=== PATIENT | male | born 1955 | race Caucasian/White ===

== ENCOUNTER 2019-03-08 19:27 | Inpatient (IN) | payer BC, MEDICARE ==
[~2019-03-08] VITALS: Ht 160 cm; Wt 84.0 kg
[~2019-03-08 19:27] MED LIST: ETOMIDATE 2 MG/ML 10 ML INJ IV ONE; LISINOPRIL30 MG PO; NIFEDIPINE20 MG PO; NORCO 10MG-325MG1 EA PO; SOMA250 MG PO; SUCCINYLCHOLINE CHLORIDE 20 MG/ML 10ML VIAL ONE; SYMBICORT 16010.2 GM
--- OUTSIDE RECORDS SUMMARY | 2019-03-08 19:29 | XMS REPORT ---
[facility] Address Unknown Phone Unavailable Care Team Providers Care Assistant Unit Forester Name Role Phone Unavailable Unavailable Payers Payer Name Policy Type Policy Number Effective Date Expiration Date Problems This patient has no known problems. Allergies, Adverse Reactions, Alerts Allergy Name Allergy Type Status Severity Reaction(s) Onset Date Inactive Date Treating Clinician Comments No Known Allergies DA Active U 2018-10-28 00:00:00 Medications This patient has no known medications. Results Test Description Test Time Test Comments Text Results Atomic Results Result Comments B-TYPE NATRIURETIC PEPTIDE 2019-02-23 03:51:00 B-TYPE NATRIURETIC PEPTIDE (test code=BNP) 14.8 PG/ML 0-100 TROPONIN-I [id number] 03:07:00* Test Item Value Reference Range Comments TROPONIN-I RAPID (test code=TROPIRAP) 0.01 ng/mL 0.00-0.08 Performed by certified blender operator at [facility] Negative: <=0.08 Positive: >=0.09An elevated troponin value alone is not sufficient todiagnose a myocardial infarction. Rather, the patient sclinical presentation (history, physical exam) and ECGshould be used in conjunction with troponin in thediagnostic evaluation of suspected myocardial infarction. Aserial sampling protocol is recommended to facilitate the identification of temporal changes in troponin levels characteristic of [place]. CBC W/AUTO [id number] 03:06:00* Test Item Value Reference Range Comments WHITE BLOOD CELL (test code=WBC) 8.11 x10 3/uL 4.5-11.0 RED BLOOD CELL (test code=RBC) 4.61 x10 6/uL 4.00-5.60 HEMOGLOBIN (test code=HGB) 13.4 g/dL 12.5-16.9 HEMATOCRIT (test code=HCT) 42.9 % 37.5-50.7 MEAN CELL VOLUME (test code=MCV) 93.1 fL 81.0-99.0 MEAN CELL HGB (test code=MCH) 29.1 pg 27.0-33.0 MEAN CELL HGB CONCETRATION (test code=MCHC) 31.2 g/dL 33.0-37.0 RED CELL DISTRIBUTION WIDTH CV (test code=RDW) 13.5 % 11.5-14.5 RED CELL DISTRIBUTION WIDTH SD (test code=RDW-SD) 46.1 fL 37.0-54.0 PLATELET COUNT (test code=PLT) 268 x10 3/uL 150-400 MEAN PLATELET VOLUME (test code=MPV) 8.3 fL 7.0-9.0 NEUTROPHIL % (test code=NT%) 72.3 % 56.0-77.0 IMMATURE GRANULOCYTE % (test code=IG%) 0.6 % 0.0-2.0 LYMPHOCYTE % (test code=LY%) 16.3 % 14.0-32.0 MONOCYTE % (test code=MO%) 7.9 % 4.8-9.0 EOSINOPHIL % (test code=EO%) 2.2 % 0.3-3.7 BASOPHIL % (test code=BA%) 0.7 % 0.0-2.0 NUCLEATED RBC % (test code=NRBC%) 0.0 % 0-0 NEUTROPHIL # (test code=NT#) 5.86 x10 3/uL 2.0-7.6 IMMATURE GRANULOCYTE # (test code=IG#) 0.05 x10 3/uL 0.00-0.03 LYMPHOCYTE # (test code=LY#) 1.32 x10 3/uL 1.0-3.8 MONOCYTE # (test code=MO#) 0.64 x10 3/uL 0.1-0.8 EOSINOPHIL # (test code=EO#) 0.18 x10 3/uL 0.0-0.2 BASOPHIL # (test code=BA#) 0.06 x10 3/uL 0.0-0.2 NUCLEATED RBC # (test code=NRBC#) 0.00 x10 3/uL 0.0-0.1 MANUAL DIFF REQUIRED (test code=MDIFF) NO LACTIC ACID [id number] 03:02:00* Test Item Value Reference Range Comments LACTIC ACID POC (test code=LACTP) 1.0 MMOL/L 0.90-1.70 Performed by certified blender operator at [facility] CHEMISTRY 8 [id number] 03:02:00* Test Item Value Reference Range Comments ISTAT-SODIUM (test code=NAP) MMOL/L 134-147 ISTAT-POTASSIUM (test code=KP) MMOL/L 3.4-5.0 ISTAT-CHLORIDE (test code=CLP) MMOL/L 100-108 ISTAT CARBON DIOXIDE (test code=ISTAT-CO2) mmol/L 21-33 ISTAT CALCIUM IONIZED (test code=ISTAT-MARY) MG/DL 1.12-1.32 ISTAT-GLUCOSE (test code=GLUP) MG/DL 70-110 ISTAT-BUN (test code=BUNP) MG/DL 7-18 BEDSIDE CREATININE (test code=CREATBED) MG/DL 0.6-1.3 GLOMERULAR FILTRATION RATE POC (test code=GFRBED) 120 ML/MIN CHEMISTRY 8 [id number] 03:02:00* Test Item Value Reference Range Comments ISTAT-SODIUM (test code=NAP) 133 MMOL/L 134-147 ISTAT-POTASSIUM (test code=KP) 3.5 MMOL/L 3.4-5.0 ISTAT-CHLORIDE (test code=CLP) 86 MMOL/L 100-108 Performed by certified blender operator at [facility] ISTAT CARBON DIOXIDE (test code=ISTAT-CO2) 37.0 mmol/L 21-33 ISTAT CALCIUM IONIZED (test code=ISTAT-MARY) 1.18 MG/DL 1.12-1.32 ISTAT-GLUCOSE (test code=GLUP) 122 MG/DL 70-110 ISTAT-BUN (test code=BUNP) 11 MG/DL 7-18 BEDSIDE CREATININE (test code=CREATBED) 0.7 MG/DL 0.6-1.3 GLOMERULAR FILTRATION RATE POC (test code=GFRBED) 120 ML/MIN - XR CHEST 1 [id number] 02:58:00 FAX: Virgil Yadav MD [phone] [place]: St: REG Name: LINA MENDOZA [facility] : [birth year] Age/S: 63/M [address] [place] [address] Blvd Unit #: [id number] Loc: G.ERS2 [place] [address] Phys: Virgil Rockwell MD Acct: [id number] Dis Date: Status: REG ER PHONE #: [phone] Exam Date: 02/23/2019 0246 FAX #: [phone] Reason: SOB EXAMS: CPT CODE: [id number] XR CHEST 1 V [id number] EXAM: CR, XR chest one view: 02/23, 0 to 37 hours HISTORY: SOB TECHNIQUE: 1 view of the chest. COMPARISON: 10/28/2018 FINDINGS: Trachea is midline. Heart is normal in size. Pulmonary vascularity is u nremarkable. Lungs are hyperinflated with mild changes of COPD. 3 mm nod ule in the lateral right perihilar region, probably calcified granuloma. There is no airspace consolidation, pleural effusion or pneumothorax. Osseous structures are stable. IMPRESSION: No acute cardiopulmo nary disease seen. SL: [[id number]] Electro nically Signed by Kami Epperson on 02/23/2019 at 0258 Reported and signed by: José Miguel Epperson M.D. CC: Virgil Rockwell MD Technologist: Neel Villavicencio, RT(R) Trnscrd Date/Time/By: 02/23/2019 (025) : By: Harry [email or web address] Orig Print D/T: S: 02/23/2019 (0308) PAGE 1 Signed Report
[2019-03-08] MEDS ORDERED: SODIUM CHLORIDE 0.9% 1000ML 1,000 ML IV STA ×2 (19:31→20:24)
[2019-03-08] MEDS ORDERED: METHYLPREDNISOLONE SOD SUCC 125 MG/2ML VIAL IV STA (19:31)
[2019-03-08] MEDS ORDERED: ALBUTEROL SULF 0.083% NEB SOLN 3 ML NEB NEB STA (19:31)
[2019-03-08] MEDS ORDERED: CEFTRIAXONE SOD 1 GM/NS 50 ML 50 ML IV ONE (19:31)
[2019-03-08] MEDS ORDERED: IPRATROPIUM BROMIDE 0.02% 2.5 ML NEB NEB STA (19:31)
[2019-03-08 19:43] LABS: BASOPHILS % 0.2 % (0.0-1.0); EOSINOPHILS # (AUTO) 0.1 (0.0-0.4); EOSINOPHILS % 0.7 % (0.0-6.0); HEMOGLOBIN 14.2 g/dL (14.0-18.0); LYMPHOCYTES # (AUTO) 0.4 (1.0-3.2); LYMPHOCYTES % 3.4 % (18.0-39.1); MEAN CORPUSCULAR HGB CONC 32.3 g/dL (31-35); MEAN CORPUSCULAR VOLUME 92.8 fL (81-99); MONOCYTES # (AUTO) 0.6 (0.2-0.8); MONOCYTES % 5.1 % (4.4-11.3); NEUTROPHILS % 89.5 % (38.7-80.0); PLATELET COUNT 215 x10e3/uL (140-360); RED BLOOD COUNT 4.74 x10e6/uL (4.3-5.7); RED CELL DISTRIBUTION WIDTH 12.9 % (11.7-14.4)
[2019-03-08 19:52] LABS: INR 0.83; PARTIAL THROMBOPLASTIN TIME 33.9 seconds (23.8-35.5); PROTHROMBIN TIME 11.9 seconds (11.9-14.5)
[2019-03-08 20:23] LABS: ALANINE AMINOTRANSFERASE 26 IU/L (0-55); ALBUMIN 4.3 g/dL (3.5-5.0); ALBUMIN/GLOBULIN RATIO 1.3 (0.8-2.0); ALKALINE PHOSPHATASE 61 IU/L (40-150); ANION GAP 15.2 mmol/L (8-16); BLOOD UREA NITROGEN 9 mg/dL (7-26); BUN/CREATININE RATIO 13 (6-25); CALCIUM 9.2 mg/dL (8.4-10.2); CARBON DIOXIDE 37 mmol/L (22-29); CHLORIDE 71 mmol/L (98-107); CREATININE, SERUM 0.68 mg/dL (0.72-1.25); EST GLOMERULAR FILTRATION RATE > 60 ML/MIN (60-); GLUCOSE 157 mg/dL (74-118); MAGNESIUM 1.9 MG/DL (1.3-2.1); POTASSIUM 4.2 mmol/L (3.5-5.1)
[2019-03-08 20:24] LABS: SODIUM 119 mmol/L (136-145)
[2019-03-08 20:26] LABS: CREATINE KINASE 140 IU/L (30-200)
[2019-03-08 20:27] LABS: THYROID STIMULATING HORMONE 0.356 uIU/mL (0.350-4.940)
--- NOTE | 2019-03-08 20:28 | Diagnostic Imaging Report ---
EXAMINATION: CHEST SINGLE (PORTABLE) INDICATION: ^ERMD ORDER ^Y COMPARISON: None FINDINGS: AP view TUBES and LINES: None. LUNGS: Lungs are well inflated. Bilateral airspace opacities. PLEURA: No significant pleural effusion or pneumothorax. HEART AND MEDIASTINUM: The cardiomediastinal silhouette is unremarkable. BONES AND SOFT TISSUES: No acute osseous lesion. Soft tissues are unremarkable. UPPER ABDOMEN: No free air under the diaphragm. IMPRESSION: Bilateral airspace opacities, representing edema and/or pneumonia. Signed by: Dr. Camden Anderson MD on 03/08/2019 8:25 PM
[2019-03-08] MEDS ORDERED: ETOMIDATE 40 MG/ 20ML VIAL IV ONE (20:39)
[2019-03-08] MEDS ORDERED: SUCCINYLCHOLINE CHLORIDE 20 MG/ML 10ML VIAL ONE (20:40)
[2019-03-08] MEDS ORDERED: PROPOFOL IV EMULSION 10MG/ML 100 ML ONE (20:40)
--- NOTE | 2019-03-08 20:40 | NUR ---
pt now confused, oriented to person only. tolerating bipap well. co2 >130 on abg, aware, setup for rsi
[2019-03-08 20:46] LABS: ABG PH 7.11 (7.31-7.41)
[2019-03-08] MEDS ORDERED: ETOMIDATE 2 MG/ML 10 ML INJ IV STA (20:47)
[2019-03-08] MEDS ORDERED: SUCCINYLCHOLINE 200 MG/10 ML SYR IV STA (20:48)
--- NOTE | 2019-03-08 20:49 | NUR ---
PER MD ORDERS: 2046 - ETOMIDATE 20 MG IVP 2047 - SUCCINYLCHOLINE 150 MG IVP 2048 - ETT 7.5, RAD CALLED FOR PLACEMENT VERIFICATION BP 172/91, HR 106, SPO2 100% VENT
[2019-03-08] MEDS ORDERED: PROPOFOL IV EMULSION 10MG/ML 100 ML IV PRN (21:00)
[2019-03-08] MEDS ORDERED: SODIUM CHLORIDE 0.9% 1000ML 1,000 ML IV SCH (21:00)
--- NOTE | 2019-03-08 21:10 | NUR ---
condom cath placed on patient, tolerated well
--- NOTE | 2019-03-08 21:20 | NUR ---
BP DROPPED TO 85/60, PROPOFOL DRIP TURNED OFF, DR RIZZO AWARE, VERSED DRIP ORDERED. PHARMACY NOTIFIED
--- NOTE | 2019-03-08 21:30 | NUR ---
116/82, HR 100. SPO2 100% PT WITH EYES OPEN VERSED DRIP STARTED AT 4MG/HR
[2019-03-08] MEDS: MIDAZOLAM HCL 25 MG in SODIUM CHLORIDE 0.9% 50ML 45 ML IV PRN ×2 (21:32→21:44)
--- NOTE | 2019-03-08 21:37 | Diagnostic Imaging Report ---
Examination: Single AP view of the chest. COMPARISON: March 08, 2019 INDICATION: Intubation DISCUSSION: Lines/tubes: Endotracheal tube 5 cm above the po. Lungs: Prominent interstitial opacities. No consolidation. Pleura: No pleural effusion or pneumothorax. Heart and mediastinum: The heart and the mediastinum are unremarkable. Bones and soft tissues: No acute bony abnormalities. IMPRESSION: 1. No acute cardiopulmonary abnormalities. Signed by: Dr. Khanh Betts M.D. on 03/08/2019 9:34 PM
--- NOTE | 2019-03-08 21:42 | NUR ---
TITRATED VERSED UP TO 8MG/HR, PT AGITATED, RESTLESS, TRYING TO PULL AT TUBE, REDIRECTABLE
[2019-03-08] MEDS: SODIUM CHLORIDE 0.9% 1000ML 1,000 ML IV SCH ×2 (21:56→23:41)
[2019-03-08 22:00] VITALS: BP_SYST 67; BP_SYST 78; BP_DIAS 53; BP_DIAS 66
[2019-03-08] MEDS ORDERED: CEFTRIAXONE SOD 1 GM VIAL IV SCH (22:00)
[2019-03-08] MEDS: METHYLPREDNISOLONE SOD SUCC 125 MG/2ML VIAL IV SCH (22:00)
[2019-03-08] MEDS ORDERED: VANCOMYCIN 1GM/NS 250 ML 250 ML IV SCH (22:15)
[2019-03-08] MEDS ORDERED: CEFEPIME HCL 1 GM VIAL IV SCH (22:15)
[2019-03-08] MEDS ORDERED: FENTANYL CITRATE/PF 100MCG/2 ML INJ ONE ×3 (22:17→22:35)
[2019-03-08] MEDS ORDERED: SODIUM CHLORIDE 0.9% 50ML 0 ML ONE (22:21)
[2019-03-08] MEDS ORDERED: SODIUM CHLORIDE 0.9% 250ML 0 ML ONE (22:22)
[2019-03-08] MEDS ORDERED: CEFEPIME 1GM/NS 0.9% 50 ML 50 ML IV SCH (22:30)
[2019-03-08 22:42] VITALS: BP 86/66
[2019-03-08] MEDS ORDERED: MIDAZOLAM HCL 2 MG/2 ML VIAL IV PRN (22:45)
[2019-03-08] MEDS ORDERED: SODIUM CHLORIDE 0.9% 250ML 250 ML ONE (22:49)
[2019-03-08 23:00] VITALS: BP 96/77
[2019-03-08 23:59] VITALS: BP 102/73
[2019-03-09] VITALS (20 sets, daily range): BP systolic 72–174; BP diastolic 56–93
[2019-03-09] MEDS: SODIUM CHLORIDE 0.9% 1000ML 1,000 ML IV SCH ×3 (00:11→20:07)
[2019-03-09] MEDS: FENTANYL CITRATE INJ 2,000 MCG in SODIUM CHLORIDE 0.9% 250ML 210 ML IV PRN (02:40)
[2019-03-09] MEDS: MIDAZOLAM HCL 25 MG in SODIUM CHLORIDE 0.9% 50ML 45 ML IV PRN ×4 (03:07→20:00)
[2019-03-09 05:07] LABS: EOSINOPHILS # (AUTO) 0.1 (0.0-0.4); EOSINOPHILS % 1.9 % (0.0-6.0); HEMATOCRIT 31.6 % (38.2-49.6); HEMOGLOBIN 10.6 g/dL (14.0-18.0); LYMPHOCYTES # (AUTO) 0.2 (1.0-3.2); LYMPHOCYTES % 2.9 % (18.0-39.1); MEAN CORPUSCULAR HEMOGLOBIN 30.1 pg (28-32); MEAN CORPUSCULAR HGB CONC 33.5 g/dL (31-35); MEAN CORPUSCULAR VOLUME 89.8 fL (81-99); MONOCYTES # (AUTO) 0.1 (0.2-0.8); MONOCYTES % 2.1 % (4.4-11.3); NEUTROPHILS # (AUTO) 5.4 (2.1-6.9); NEUTROPHILS % 92.8 % (38.7-80.0); PLATELET COUNT 136 x10e3/uL (140-360); RED BLOOD COUNT 3.52 x10e6/uL (4.3-5.7)
--- NOTE | 2019-03-09 05:38 | Diagnostic Imaging Report ---
Examination: Single AP view of the chest. COMPARISON: 03/08/2019 INDICATION: COPD DISCUSSION: Lines/tubes: Stable endotracheal tube. Lungs: Lungs are hyperinflated. No consolidation. Prominence of the central pulmonary vasculature. Pleura: No pleural effusion or pneumothorax. Heart and mediastinum: The heart and the mediastinum are unremarkable. Bones and soft tissues: No acute bony abnormalities. IMPRESSION: Hyperinflated lungs Signed by: Dr. Khanh Betts M.D. on 03/09/2019 5:35 AM
[2019-03-09 05:40] LABS: CREATINE KINASE MB 11.3 ng/mL (0-5.0)
[2019-03-09] MEDS: METHYLPREDNISOLONE SOD SUCC 125 MG/2ML VIAL IV SCH ×3 (06:03→20:24)
[2019-03-09 06:07] LABS: ANION GAP 12.1 mmol/L (8-16); BLOOD UREA NITROGEN 14 mg/dL (7-26); BUN/CREATININE RATIO 21 (6-25); CARBON DIOXIDE 27 mmol/L (22-29); CHLORIDE 88 mmol/L (98-107); CREATININE, SERUM 0.67 mg/dL (0.72-1.25); EST GLOMERULAR FILTRATION RATE > 60 ML/MIN (60-); GLUCOSE 93 mg/dL (74-118); POTASSIUM 4.1 mmol/L (3.5-5.1); SODIUM 123 mmol/L (136-145)
[2019-03-09] MEDS: ALBUTEROL/IPRATROPIUM 3 ML NEB NEB SCH ×5 (07:25→22:43)
[2019-03-09] MEDS ORDERED: LORAZEPAM INJ 2 MG/ML VIAL IV PRN (08:45)
[2019-03-09] MEDS ORDERED: DEXTROSE 50% SYRINGE 50 ML IV PRN (08:45)
[2019-03-09] MEDS ORDERED: HEPARIN SOD (PORCINE) 5,000 UNIT/ML VIAL SC SCH (09:00)
[2019-03-09] MEDS: PANTOPRAZOLE 40 MG 10ML VIAL IV SCH (09:37)
[2019-03-09] MEDS: HEPARIN SOD (PORCINE) 5,000 UNIT/ML VIAL SC SCH ×2 (09:40→20:42)
[2019-03-09] MEDS: DOXYCYCLINE 100MG/NS 100ML 100 ML IV SCH ×2 (10:06→20:24)
--- NOTE | 2019-03-09 10:49 | History and Physical ---
CHIEF COMPLAINT: Respiratory failure, intubation. HISTORY: A 63-year-old male came in with septic shock, acute exacerbation of COPD, and pneumonia. The patient in respiratory failure. He was having difficulty breathing. He was hypoxic, pH of 7.1. The patient is intubated in the emergency room. The patient is now in the ICU. He is on ventilator support. IV antibiotics. Blood pressure was low. Multiple boluses of IV fluid were given. The patient is critically stable in ICU at this time. He is moving his extremity spontaneously. PAST MEDICAL HISTORY: Not obtainable other than from medical records. SOCIAL HISTORY: Not available. HOME MEDICATIONS: Not yet available. PHYSICAL EXAMINATION: VITAL SIGNS: Temperature 98.9, blood pressure pulse rate is 69, and respiration is 22. The patient is on ventilator support. HEENT: Normocephalic and atraumatic. Pupils reactive. NECK: Grossly supple. ET tube in place. PULMONARY: Diminished breath sounds bilaterally with coarse rales and rhonchi. CARDIOVASCULAR: Regular rate and rhythm. ABDOMEN: Soft and nondistention. EXTREMITIES: No edema. NEUROLOGIC: Sedated on ventilator support. LABORATORY DATA: Sodium is 123, potassium 4.1, chloride 88, bicarb 27, BUN 14, creatinine 0.6, and glucose 93. WBC is 5.8, hemoglobin 10.6, hematocrit 31.6, and platelets is 136. INR 0.83. IMPRESSION: 1. Sepsis with shock. 2. acute hypoxia with respiratory acidosis, on ventilator support. Intubated in the emergency room. 3. Severe hyponatremia, improving with normal saline fluid. 4. Bilateral pneumonia. PLAN: Continue with antibiotic Zosyn, vancomycin, and doxycycline. IV fluid support with normal saline. Ventilator support. Consultation with Dr. Angie Rojas. We will continue with vent support and continue with antibiotic at this time. MD LINDA Urbano/MODL /[id number]
[2019-03-09] MEDS: NICOTINE 21 MG/EA PATCH TOP PRN (11:15)
--- NOTE | 2019-03-09 11:19 | Consultation ---
DATE OF CONSULTATION: Pulmonary Consultation According to report, he has been lost to follow up with Dr. Quintero's office, admitted to Dr. Means. The patient apparently was intubated last night. There are no ER records found. He apparently had history of multiple pulmonary nodules, end-stage COPD, and smoking when he was last admitted in 2010. He is also hyponatremic at this time. According to record, cultures were sent and report is not available. There was no evidence of active TB at this time. ALLERGIES: THE PATIENT HAS NO KNOWN ALLERGIES. PAST MEDICAL HISTORY: He has history of hypertension. MEDICATIONS: According to record, his medications include: 1. Symbicort. 2. Soma. 3. Lisinopril. 4. Nifedipine. PHYSICAL EXAMINATION: GENERAL: He is awake and alert despite attempts at sedation, he is intubated orally. Hou catheter was placed. HEAD: Normocephalic, atraumatic. EYES: Extraocular movements intact. LUNGS: Wheezing in all lung welch. HEART: Regular rhythm. ABDOMEN: Nontender and nonedematous. IMPRESSION: Respiratory failure, acute exacerbation of chronic obstructive pulmonary disease. The patient continues to smoke cigarettes despite the admonishment from his physician. White count on admission was 12.0 with neutrophilia. Eventually, the H and P from the ER was found, which the patient apparently was unable to speak in full sentences. He was intubated in the emergency room because of respiratory failure with CO2 retention, severely acidotic, pH 7.11, pCO2 130, paO2 187. PLAN: Gradual correction of hyponatremia, therapeutic; acute exacerbation of COPD, antibiotics, bronchodilators, corticosteroids, cigarette smoking cessation, and nicotine patch. The patient's long-term prognosis is poor. Thank you for this kind referral. MD ARRON Cárdenas/MODL /[id number]
[2019-03-09] MEDS: INSULIN LISPRO 100 UNIT/1 ML 3ML VIAL SQ SCH ×3 (11:30→20:41)
[2019-03-09] MEDS: PIPER-TAZ 3.375 GM 50 ML IV SCH ×3 (12:55→23:58)
[2019-03-09 14:26] LABS: ABG PCO2 55 mmHg (41-51); ABG PH 7.36 (7.31-7.41)
[2019-03-09 14:27] LABS: ABG HCO3 31 mmol/L (23-28); ABG PO2 239 mmHg (80-105)
--- NOTE | 2019-03-09 15:05 | NUR ---
Nutrition Intervention Note RD Recommendation(s) for Physician: -Rec to initiate continuous TF of Vital HP @20mL/hr, advance as tolerated, to goal rate of 60mL/hr, providing 1440kcal, 126g protein, and 1204ml water. -Free water flushes of 50mL q4hr; additional per MD discretion -Check daily labs, weight, and GI tolerance Plan of Care: RD following, monitoring for tolerance and adequacy, TF Nutrition reason for involvement: Nutrition Risk Trigger MST, tube feeding RD Assessment 03/09: 63yo M, who was admitted for acute respiratory failure. Currently intubated and ventilated. CXR showed hyperinflated lungs. Pt was discussed during AM rounds. No pressor meds. TF order placed but not started yet. No family on bedside to provide hx. Will continue to monitor and follow. Principal Problems/Diagnoses: acute respiratory alkalosis, acute respiratory failure PMH: multiple pulmonary nodules, end-stage COPD, diverticulitis GI: abdomen flat, non-tender, soft, flatus present Skin: no pressure wound noted Labs: (02/27) Na 123 L, Creatinine 0.67 L, Ca 8.0 L Meds: heparin, solu-medrol, protonix, NaCl (125mL/hr), fentanyl Ht: 68in (per observation) Wt: 168.56lb BMI: 25.6kg/m2 IBW: 154lb Malnutrition Evaluation (03/09/2019) The patient does not meet criteria for a specified degree of malnutrition at this time. Will re-evaluate at follow-up as appropriate. Nutrition Prescription (Diet Order): Tube feeding with Vital HP @40mL/hr Estimated Nutritional Needs: Calories: 1368 1520kcal (18-20kcal/kg/d) Weight used: current BW Protein: 99- 152g(1.3-2g/kg/d) Weight used: current BW Diet Adequacy: Not meeting calorie needs, Not meeting protein needs Diet Education Needs Assessment: Diet education indicated, but patient not appropriate for education at this time. Nutrition Care Level: mod Nutrition Diagnosis: Inadequate oral intake related to current medical status as evidenced by pt requiring EN as main source of nutrition. Goal: Patient will meet 75-100% of estimated needs by follow up Progress: N/A Interventions: Composition, Rate, Route Monitoring/Evaluation: Total energy intake, Total protein intake, Formula/Solution, Weight change, Labs, Gastric tolerance Signed: Violet Mills, MS, RD, LD
--- NOTE | 2019-03-09 15:17 | NUR ---
GAVE PACKET OF INFORMATION WITH COMMUNITY RESOURCES FOR ASSISTANCE WITH LOW TO NO INCOME TO PATIENT. RESOURCES THAT PATIENT MAY BE ABLE TO FOLLOW UP UPON DISCHARGE. PT EDUCATED ON EACH RESOURCE AND UNDERSTANDING HOW TO FOLLOW UP TO SEE IF QUALIFIED FOR EACH RESOURCE.
[2019-03-09] MEDS: DEXMEDETOMIDINE HCL 200 MCG in SODIUM CHLORIDE 0.9% 50ML 48 ML IV PRN (16:10)
--- NOTE | 2019-03-09 16:12 | NUR ---
called Dr. Rojas d/t patients increased agitation with maxed out versed and Fentanyl gtts. Rec' T.O for precedex gtt and ok to start central line if patients BP drops for needed sedation. No answer from emergency contact for central line consent. will call again for f/u. will continue to monitor
--- NOTE | 2019-03-09 17:35 | Diagnostic Imaging Report ---
Exam: KUB. Clinical History: Abdominal pain. NG tube placement Comparison: Chest radiograph 03/09/2019 Findings: Frontal view of the abdomen demonstrates a nonobstructive bowel gas pattern with moderate retained stool. NG tube with distal tip over right medial lower lung Impression: NG tube with distal tip over right medial lower lung. Removal is recommended. Findings discussed with nurse Rousseau who is caring for the patient in the ICU by Dr. Marcelo on 03/09/2019 at 5:30 PM Signed by: Dr. Clifton Marcelo M.D. on 03/09/2019 5:32 PM
[2019-03-09] MEDS ORDERED: CEFTRIAXONE SOD 1 GM/NS 50 ML 50 ML IV SCH (19:00)
[2019-03-09] MEDS: HYDRALAZINE HCL 20 MG/ML VIAL IV PRN (19:48)
--- NOTE | 2019-03-09 21:00 | NUR ---
MD ARSHAD NOTIFIED OF TROPONIN LEVEL NO FURTHER ORDERS RECEIVED AT THIS TIME
[2019-03-10] VITALS (24 sets, daily range): BP systolic 113–190; BP diastolic 64–97
[2019-03-10] MEDS: FENTANYL CITRATE INJ 2,000 MCG in SODIUM CHLORIDE 0.9% 250ML 210 ML IV PRN ×2 (00:51→23:13)
[2019-03-10] MEDS: SODIUM CHLORIDE 0.9% 1000ML 1,000 ML IV SCH ×3 (00:53→17:38)
[2019-03-10] MEDS: ALBUTEROL/IPRATROPIUM 3 ML NEB NEB SCH ×6 (04:13→22:26)
[2019-03-10] MEDS: HYDRALAZINE HCL 20 MG/ML VIAL IV PRN ×2 (04:39→14:52)
[2019-03-10 05:21] LABS: HEMATOCRIT 34.8 % (38.2-49.6); HEMOGLOBIN 11.2 g/dL (14.0-18.0); LYMPHOCYTES # (AUTO) 0.2 (1.0-3.2); LYMPHOCYTES % 5.1 % (18.0-39.1); MEAN CORPUSCULAR HEMOGLOBIN 29.6 pg (28-32); MEAN CORPUSCULAR HGB CONC 32.2 g/dL (31-35); MEAN CORPUSCULAR VOLUME 92.1 fL (81-99); MONOCYTES # (AUTO) 0.1 (0.2-0.8); MONOCYTES % 3.4 % (4.4-11.3); NEUTROPHILS # (AUTO) 3.2 (2.1-6.9); NEUTROPHILS % 90.9 % (38.7-80.0); PLATELET COUNT 149 x10e3/uL (140-360); RED BLOOD COUNT 3.78 x10e6/uL (4.3-5.7); RED CELL DISTRIBUTION WIDTH 13.2 % (11.7-14.4)
[2019-03-10 05:39] LABS: ALANINE AMINOTRANSFERASE 16 IU/L (0-55); ALBUMIN/GLOBULIN RATIO 1.2 (0.8-2.0); ALKALINE PHOSPHATASE 40 IU/L (40-150); ANION GAP 11.4 mmol/L (8-16); BLOOD UREA NITROGEN 15 mg/dL (7-26); BUN/CREATININE RATIO 23 (6-25); CALCIUM 8.3 mg/dL (8.4-10.2); CARBON DIOXIDE 30 mmol/L (22-29); CHLORIDE 97 mmol/L (98-107); CREATININE, SERUM 0.66 mg/dL (0.72-1.25); EST GLOMERULAR FILTRATION RATE > 60 ML/MIN (60-); GLUCOSE 124 mg/dL (74-118); POTASSIUM 4.4 mmol/L (3.5-5.1); SODIUM 134 mmol/L (136-145)
[2019-03-10] MEDS: PIPER-TAZ 3.375 GM 50 ML IV SCH ×4 (06:01→23:29)
--- NOTE | 2019-03-10 06:40 | Diagnostic Imaging Report ---
Examination: Single AP view of the chest. COMPARISON: Mar 09 2019 INDICATION: Intubated DISCUSSION: Lines/tubes: Endotracheal tube 5 cm above the po. Lungs: Hyperinflated lungs. Pleura: No pleural effusion or pneumothorax. Heart and mediastinum: The heart and the mediastinum are unremarkable. Bones and soft tissues: No acute bony abnormalities. IMPRESSION: Hyperinflated lungs Signed by: Dr. Khanh Betts M.D. on 03/10/2019 6:37 AM
[2019-03-10] MEDS ORDERED: FUROSEMIDE INJ 10 MG/ML 4 ML VIAL IV ONE (07:30)
[2019-03-10] MEDS: INSULIN LISPRO 100 UNIT/1 ML 3ML VIAL SQ SCH ×4 (07:30→21:00)
[2019-03-10] MEDS: PANTOPRAZOLE 40 MG 10ML VIAL IV SCH (08:04)
[2019-03-10] MEDS: METHYLPREDNISOLONE SOD SUCC 125 MG/2ML VIAL IV SCH ×2 (08:04→20:11)
[2019-03-10] MEDS: HEPARIN SOD (PORCINE) 5,000 UNIT/ML VIAL SC SCH ×2 (08:05→20:54)
[2019-03-10] MEDS: DOXYCYCLINE 100MG/NS 100ML 100 ML IV SCH ×2 (08:30→20:11)
--- NOTE | 2019-03-10 08:39 | NUR ---
PT HAS MEDICARE
--- NOTE | 2019-03-10 11:15 | Diagnostic Imaging Report ---
ADDENDUM #1 Addendum: Previous CT chest 02/13/2011 is now available for comparison. Several more distinct pulmonary nodules are measured on series 3: * Right upper lobe nodule (image 40): 4.9 mm (03/10/2019). Not visualized (02/13/2011). * Right lower lobe nodule (image 116): 8.1 mm (03/10/2019). 5.6 mm (02/13/2011). * Left lower lobe nodule on series image 95): 4.9 mm (03/10/2019). 3.6 mm (02/13/2011). Signed by: Dr. Sumanth Barahona M.D. on 03/12/2019 11:02 AM ORIGINAL REPORT EXAM: CT Chest WITHOUT contrast INDICATION: Acute respiratory ^abnormal cxr COMPARISON: Chest x-ray 03/10/2019. TECHNIQUE: Chest was scanned utilizing a multidetector helical scanner from the lung apex through the level of the adrenal glands without administration of IV contrast. Absence of intravenous contrast decreases sensitivity for detection of lymphadenopathy and vascular pathology. Coronal and sagittal reformations were obtained. Routine protocol was performed. IV CONTRAST: None COMPLICATIONS: None RADIATION DOSE: Total DLP: 604.99 mGy*cm Estimated effective dose: (DLP x 0.014 x size factor) mSv CTDIvol has been reviewed. It is below the limits set by the Radiation Protocol Committee (RPC). Dose modulation, iterative reconstruction, and/or weight based adjustment of the mA/kV was utilized to reduce the radiation dose to as low as reasonably achievable. FINDINGS: LINES/ TUBES: Endotracheal tube in good position. LUNGS AND AIRWAYS: Moderate centrilobular and paraseptal emphysematous changes with apical predominance. Diffuse mild bronchial wall thickening, especially involving both lower lobes. Extensive subtle groundglass nodularity throughout entire lungs with areas with tree-in-bud distribution. There is also fluid/mucus plugging in the right lower lobe bronchioles. Several more distinct pulmonary nodules are measured on series 3: * Right upper lobe nodule (image 40): 4.9 mm (03/10/2019). * Right lower lobe nodule (image 116): 8.1 mm (03/10/2019). * Left lower lobe nodule on series image 95): 4.9 mm (03/10/2019) PLEURA: The pleural spaces are clear. HEART AND MEDIASTINUM: The thyroid gland is normal. No mediastinal, hilar or axillary lymphadenopathy. Multiple scattered tiny nodularity within the anterior mediastinum and mediastinum, likely tiny lymph nodes. The heart is normal in size. There is no pericardial effusion. There are significant atherosclerotic calcifications in the aorta and coronary arteries. Main pulmonary artery measures 3.0 cm. Ascending aorta measures 3.9 cm. UPPER ABDOMEN: Unremarkable. BONES: The visualized bony thorax is within normal limits. SOFT TISSUES: Unremarkable. IMPRESSION: 1. Findings consistent with diffuse bronchiolitis with bronchial wall thickening and diffuse groundglass nodularity. 2. Several more distinct pulmonary nodules. These should be followed up in 3 months. Biopsy or PET/CT should be performed if there is high risk. 3. Moderate emphysema. Signed by: Dr. Sumanth Barahona M.D. on 03/10/2019 11:11 AM
--- NOTE | 2019-03-10 11:38 | Consultation ---
DATE OF CONSULTATION: 03/10/2019 Cardiology Consultation CONSULTING PHYSICIAN: Keanu Mccarthy MD, Interventional Cardiology. CHIEF COMPLAINT: Shortness of breath. HISTORY OF PRESENT ILLNESS: A 63-year-old man with history of hypertension, active smoking, and end-stage COPD, presents with labored breathing, inability to catch his breath, requiring emergent endotracheal intubation and ventilatory support in the emergency department. He was found to have severe hyponatremia with initial sodium less than 120 and hypoxemic respiratory failure. He is undergoing treatment for hyponatremia as well as treatment for presumptive sepsis in the setting of acute respiratory failure and COPD exacerbation. Overnight, he has had episodes of labile blood pressure with hypertensive spells despite of sedatives, for which we were consulted. Additionally, his EKG has shown some prolongation of QRS and slight increase in peaking of the T-wave. He has remained in sinus bradycardia to normal sinus rhythm. REVIEW OF SYSTEMS: A 12-system review is unable to assess given the patient's current mental status and current sedative state. PAST MEDICAL HISTORY: As per HPI include hypertension, smoking-related COPD. SOCIAL HISTORY: Per medical record, smoker. Unable to assess further. FAMILY HISTORY: Unable to assess. PHYSICAL EXAMINATION: VITAL SIGNS: Temperature 98.2, heart rate 58, respiratory rate 14, on vent support; blood pressure 127/66, O2 saturation 100%. GENERAL: Intubated and sedated. HEENT: On vent support. NECK: Unable to assess jugular venous distention given the patient's positive-pressure ventilation. I do not hear a carotid bruit on exam. Neck is supple. CHEST: With scattered wheezing and rhonchi as well as decreased breath sounds throughout. CARDIOVASCULAR: Regular rate and rhythm. Normal S1, S2. No S3 or S4. No murmurs or rubs. ABDOMEN: Soft. EXTREMITIES: Trace edema. Warm distal extremities. CARDIOVASCULAR MEDICATIONS: Reviewed. 1. Hydralazine 10 mg IV every 6 hours as needed, has been initiated overnight with improvement in blood pressure control. 2. On Zosyn. 3. Lorazepam. 4. Albuterol and ipratropium. 5. Midazolam. 6. Versed sedation. 7. Normal saline hydration. 8. Protonix. 9. Subcu heparin. 10. Methylprednisolone for COPD. STUDIES: EKG; sinus rhythm with nonspecific repolarization abnormality and prolonged QT. Sodium 134, improving; potassium 4.4, chloride 97, bicarbonate 30, BUN 15, creatinine 0.66, glucose 124. White blood cells 3.5, hemoglobin 11.2, platelets 149. INR 0.8. AST 16, ALT 16, total bilirubin 0.2, alkaline phosphatase 40. ASSESSMENT: 1. Acute on chronic respiratory failure, requiring vent support. 2. Chronic obstructive pulmonary disease exacerbation, on antibiotic therapy. 3. Labile blood pressure with hypertension history, improved on sedation and p.r.n. hydralazine. 4. Abnormal EKG findings, most likely related to metabolic and electrolyte derangements. Has had serial cardiac enzymes x4, all negative. Echo ordered. 5. Smoking cessation counseling to be reinforced once the patient is extubated. Overall, guarded prognosis. Thank you for the consult. MD BINDU Gage/MODColin /[id number]
[2019-03-10] MEDS: DEXMEDETOMIDINE HCL 200 MCG in SODIUM CHLORIDE 0.9% 50ML 48 ML IV PRN (23:12)
[2019-03-10] MEDS: MIDAZOLAM HCL 25 MG in SODIUM CHLORIDE 0.9% 50ML 45 ML IV PRN (23:13)
[2019-03-11] VITALS (26 sets, daily range): BP systolic 139–207; BP diastolic 72–109
[2019-03-11] MEDS: SODIUM CHLORIDE 0.9% 1000ML 1,000 ML IV SCH ×3 (01:13→18:30)
[2019-03-11] MEDS: ALBUTEROL/IPRATROPIUM 3 ML NEB NEB SCH ×6 (02:56→23:05)
[2019-03-11] MEDS ORDERED: SODIUM CHLORIDE 0.9% 50ML 0 ML ONE (04:20)
[2019-03-11] MEDS ORDERED: DEXMEDETOMIDINE 200MCG/NS 50ML 50 ML IV ONE (04:21)
[2019-03-11] MEDS: HYDRALAZINE HCL 20 MG/ML VIAL IV PRN ×4 (05:00→23:54)
[2019-03-11] MEDS: PIPER-TAZ 3.375 GM 50 ML IV SCH ×3 (05:41→18:42)
[2019-03-11] MEDS: INSULIN LISPRO 100 UNIT/1 ML 3ML VIAL SQ SCH ×4 (07:30→21:00)
[2019-03-11 07:49] LABS: HEMATOCRIT 37.3 % (38.2-49.6); LYMPHOCYTES # (AUTO) 0.2 (1.0-3.2); LYMPHOCYTES % 3.1 % (18.0-39.1); MEAN CORPUSCULAR HEMOGLOBIN 29.7 pg (28-32); MEAN CORPUSCULAR HGB CONC 32.2 g/dL (31-35); MEAN CORPUSCULAR VOLUME 92.3 fL (81-99); MONOCYTES # (AUTO) 0.3 (0.2-0.8); MONOCYTES % 4.1 % (4.4-11.3); NEUTROPHILS # (AUTO) 5.6 (2.1-6.9); NEUTROPHILS % 92.3 % (38.7-80.0); PLATELET COUNT 181 x10e3/uL (140-360); RED BLOOD COUNT 4.04 x10e6/uL (4.3-5.7); RED CELL DISTRIBUTION WIDTH 13.6 % (11.7-14.4)
[2019-03-11 08:15] LABS: ANION GAP 10.4 mmol/L (8-16); BLOOD UREA NITROGEN 18 mg/dL (7-26); BUN/CREATININE RATIO 28 (6-25); CALCIUM 8.5 mg/dL (8.4-10.2); CARBON DIOXIDE 32 mmol/L (22-29); CHLORIDE 102 mmol/L (98-107); CREATININE, SERUM 0.64 mg/dL (0.72-1.25); EST GLOMERULAR FILTRATION RATE > 60 ML/MIN (60-); GLUCOSE 122 mg/dL (74-118); MAGNESIUM 2.3 MG/DL (1.3-2.1); POTASSIUM 4.4 mmol/L (3.5-5.1); SODIUM 140 mmol/L (136-145)
[2019-03-11] MEDS: DOXYCYCLINE 100MG/NS 100ML 100 ML IV SCH ×2 (08:30→20:22)
--- NOTE | 2019-03-11 08:30 | NUR ---
PT EXTUBATED HIMSELF,NURSE CALLED RT ,PLACED PT NONREBREATHER,O2 SATS 100%,RES RATE 25/MIN,NO RESP DISTRESS AT THIS TIME.
--- NOTE | 2019-03-11 08:36 | Diagnostic Imaging Report ---
EXAMINATION: CHEST SINGLE (PORTABLE) INDICATION: ^intubated COMPARISON: CT chest 03/10/2019. Chest x-ray 03/10/2018. FINDINGS: AP view TUBES and LINES: The endotracheal tube is in good position. LUNGS: Lungs are hyper inflated. Bilateral peribronchial cuffing. There is mild prominence of the central pulmonary vasculature, consistent with pulmonary venous congestion. PLEURA: No pleural effusion or pneumothorax. HEART AND MEDIASTINUM: The cardiomediastinal silhouette is unremarkable. There are atherosclerotic calcifications within the aorta. BONES AND SOFT TISSUES: No acute osseous lesion. Soft tissues are unremarkable. UPPER ABDOMEN: No free air under the diaphragm. IMPRESSION: Unchanged bilateral peribronchial cuffing and central pulmonary venous congestion. Signed by: Dr. Sumanth Barahona M.D. on 03/11/2019 8:33 AM
[2019-03-11] MEDS ORDERED: HYDRALAZINE HCL 20 MG/ML VIAL IV ONE (09:30)
[2019-03-11] MEDS: PANTOPRAZOLE 40 MG 10ML VIAL IV SCH (09:34)
[2019-03-11] MEDS: HEPARIN SOD (PORCINE) 5,000 UNIT/ML VIAL SC SCH ×2 (09:34→21:30)
[2019-03-11 09:46] LABS: ABG HCO3 35 mmol/L (23-28); ABG PCO2 71 mmHg (41-51); ABG PO2 114 mmHg (80-105)
[2019-03-11] MEDS ORDERED: DEXMEDETOMIDINE HCL 200 MCG in SODIUM CHLORIDE 0.9% 50ML 48 ML IV PRN (10:30)
[2019-03-11 11:00] LABS: BILIRUBIN,URINE NEGATIVE (NEGATIVE); CLARITY,URINE CLEAR (CLEAR); COLOR,URINE YELLOW (YELLOW); KETONES,URINE NEGATIVE (NEGATIVE); LEUKOCYTE ESTERASE ,URINE NEGATIVE (NEGATIVE); NITRITE,URINE NEGATIVE (NEGATIVE); PROTEIN,URINE DIPSTICK 1+ (NEGATIVE); URINE UROBILINOGEN 0.2 mg/dL (0.2 - 1)
--- NOTE | 2019-03-11 11:00 | NUR ---
PLACED PT ON VAPOTHERM 20L/50% PER DR LE ORDER.O2 SATS 99%,RES RATE 25,NO RESPIRATORY DISTRESS AT THIS TIME.
[2019-03-11 11:05] LABS: AMPHETAMINES SCREEN,URINE NEGATIVE (NEGATIVE); BENZODIAZEPINES SCREEN,URINE NEGATIVE (NEGATIVE); PHENCYCLIDINE SCREEN,URINE NEGATIVE (NEGATIVE)
[2019-03-11 11:29] LABS: RBC,URINE 21-50 /HPF (0-5)
[2019-03-11 11:30] LABS: BACTERIA,URINE FEW /HPF; EPITHELIAL CELLS,URINE FEW /LPF
[2019-03-11 11:57] LABS: LYMPHOCYTES % (MANUAL) 5 % (19-48); MONOCYTES % (MANUAL) 3 % (3.4-9.0); NEUTROPHILS % (MANUAL) 92 % (40-74)
--- NOTE | 2019-03-11 13:40 | NUR ---
patient is on 50% fiO2 on vapotherm. sating 98% rr 15. pulse is 130, bp 190/90. patient alert, reoriented to situation, following commands. rn swallow eval performed, no evidence of aspiration. patient is wanting his norco.. dr carreno called, states we can start home bp meds and norco. also diet ordered per dr person.
[2019-03-11] MEDS ORDERED: HYDROCODONE/APAP 10MG-325MG TAB PO PRN (13:45)
[2019-03-11] MEDS ORDERED: LISINOPRIL 20 MG TAB PO SCH (14:00)
[2019-03-11] MEDS: NICOTINE 21 MG/EA PATCH TOP PRN (14:25)
[2019-03-11] MEDS: DILTIAZEM HCL 30 MG TAB PO SCH (16:35)
[2019-03-11] MEDS ORDERED: DILTIAZEM HCL 30 MG TAB PO SCH (17:00)
--- NOTE | 2019-03-11 19:06 | Progress Note ---
DATE: 03/11/2019 Cardiology Progress Note SUBJECTIVE: Self-extubated today, seems upset about medications. OBJECTIVE: VITAL SIGNS: Temperature 97.8; heart rate 120, sinus tachycardia on telemetry; respiratory rate 18; blood pressure 154/78 to 186/84; and O2 saturation 99% on nasal cannula. GENERAL: In no acute distress. NECK: No JVD. CHEST: Scattered with rhonchi and wheezing, prolonged expiratory phase. CARDIOVASCULAR: Regular rate and rhythm. Normal S1, S2. Systolic ejection murmur. ABDOMEN: Soft. EXTREMITIES: No edema. CARDIOVASCULAR MEDICATIONS: Reviewed, nicotine patch, albuterol and ipratropium, Zosyn antibiotics, hydralazine 10 mg IV q.4 hours p.r.n., starting diltiazem 30 mg every 12 hours, lisinopril 30 mg daily, and DC nifedipine. LABORATORY STUDIES: Reviewed, white blood cells 6, hemoglobin 12, and platelets 181. Sodium 140, potassium 4.4, chloride 102, bicarbonate 32, BUN 18, creatinine 0.6, glucose 122, and magnesium 2.3. Blood cultures negative x48 hours. ASSESSMENT: 1. [id number] respiratory failure, now status post vent support. The patient self-extubated today. 2. Chronic obstructive pulmonary disease exacerbation, end-stage COPD. 3. Active smoker. 4. Hypertension. 5. Abnormal EKG. RECOMMENDATIONS: 1. Continue up titration of antihypertensives via oral route, and we continue with p.r.n. hydralazine for now. 2. Monitor closely respiratory status, the patient self-extubated today. 3. Overall guarded prognosis, smoking cessation reinforced. 4. Chronic diastolic heart failure, has preserved left ventricular systolic function on echocardiogram and seems euvolemic on exam. Keanu Mccarthy MD AFShaheen/MODL /[id number]
[2019-03-11] MEDS: LIDOCAINE 5% PATCH TP SCH (20:05)
[2019-03-11] MEDS: HYDROCODONE/APAP 10MG-325MG TAB PO PRN (20:23)
[2019-03-11] MEDS ORDERED: NON-FORMULARY MEDICATION (Lisinopril 30 MG) PO SCH (21:00)
[2019-03-11] MEDS: METHYLPREDNISOLONE SOD SUCC 40 MG/ML VIAL 1ML IV SCH (21:28)
[2019-03-12] VITALS (25 sets, daily range): BP systolic 99–197; BP diastolic 61–111
[2019-03-12] MEDS: HYDROCODONE/APAP 10MG-325MG TAB PO PRN ×4 (00:15→20:35)
[2019-03-12] MEDS: PIPER-TAZ 3.375 GM 50 ML IV SCH ×4 (00:53→17:00)
[2019-03-12] MEDS: ALBUTEROL/IPRATROPIUM 3 ML NEB NEB SCH ×6 (03:00→23:10)
[2019-03-12] MEDS: HYDRALAZINE HCL 20 MG/ML VIAL IV PRN ×4 (04:19→20:17)
[2019-03-12 05:17] LABS: BASOPHILS % 0.1 % (0.0-1.0); EOSINOPHILS % 0.1 % (0.0-6.0); HEMATOCRIT 38.4 % (38.2-49.6); LYMPHOCYTES # (AUTO) 0.1 (1.0-3.2); LYMPHOCYTES % 1.6 % (18.0-39.1); MEAN CORPUSCULAR HEMOGLOBIN 29.7 pg (28-32); MEAN CORPUSCULAR HGB CONC 31.3 g/dL (31-35); MONOCYTES # (AUTO) 0.4 (0.2-0.8); MONOCYTES % 4.3 % (4.4-11.3); NEUTROPHILS # (AUTO) 8.4 (2.1-6.9); NEUTROPHILS % 93.3 % (38.7-80.0); PLATELET COUNT 187 x10e3/uL (140-360); RED BLOOD COUNT 4.04 x10e6/uL (4.3-5.7)
[2019-03-12 05:31] LABS: BLOOD UREA NITROGEN 18 mg/dL (7-26); BUN/CREATININE RATIO 30 (6-25); CALCIUM 8.7 mg/dL (8.4-10.2); CARBON DIOXIDE 36 mmol/L (22-29); CHLORIDE 99 mmol/L (98-107); EST GLOMERULAR FILTRATION RATE > 60 ML/MIN (60-); GLUCOSE 135 mg/dL (74-118); SODIUM 139 mmol/L (136-145)
[2019-03-12] MEDS: INSULIN LISPRO 100 UNIT/1 ML 3ML VIAL SQ SCH ×5 (07:30→20:16)
[2019-03-12] MEDS: DILTIAZEM HCL 30 MG TAB PO SCH ×3 (08:03→20:16)
[2019-03-12] MEDS: PANTOPRAZOLE 40 MG 10ML VIAL IV SCH (08:04)
[2019-03-12] MEDS: METHYLPREDNISOLONE SOD SUCC 40 MG/ML VIAL 1ML IV SCH ×2 (08:04→20:15)
[2019-03-12] MEDS: LISINOPRIL 10 MG TAB PO SCH (08:04)
[2019-03-12] MEDS: HEPARIN SOD (PORCINE) 5,000 UNIT/ML VIAL SC SCH ×2 (08:07→20:19)
[2019-03-12] MEDS: LIDOCAINE 5% PATCH TP SCH (08:08)
[2019-03-12] MEDS ORDERED: NIFEDIPINE 10 MG CAP PO SCH (09:00)
[2019-03-12] MEDS ORDERED: CLONIDINE HCL 0.1 MG/24 HR 1 EA PATCH TOP SCH (09:30)
--- NOTE | 2019-03-12 10:07 | NUR ---
EDUCATED ABOUT IMM, SIGNED, FILED IN CHART, WITH COPY LEFT WITH FAMILY AT BEDSIDE.
[2019-03-12] MEDS: DOXYCYCLINE 100MG/NS 100ML 100 ML IV SCH ×2 (10:26→20:15)
[2019-03-12] MEDS: SODIUM CHLORIDE 0.9% 1000ML 1,000 ML IV SCH ×2 (10:36→14:10)
--- NOTE | 2019-03-12 11:05 | NUR ---
spoke to pascual in radiology. radiologist is going to compare ct done this admission with one performed on 02/13/11.
[2019-03-12] MEDS: BUSPIRONE HCL 5 MG TAB PO SCH (12:16)
[2019-03-12] MEDS: NICOTINE 21 MG/EA PATCH TOP PRN (12:16)
--- NOTE | 2019-03-12 12:34 | NUR ---
ST NOTE: Pt unable to come off of bipap, unable to complete BSE at this time. Will follow pt status and complete when clinically appropriate. Handoff to NATALI Baez
[2019-03-12 16:12] LABS: ABG PH 7.33 (7.31-7.41)
[2019-03-12 16:13] LABS: ABG HCO3 40 mmol/L (23-28); ABG PCO2 76 mmHg (41-51); ABG PO2 305 mmHg (80-105)
--- NOTE | 2019-03-12 20:04 | Progress Note ---
DATE: 03/12/2019 Cardiology Progress Note SUBJECTIVE: Requiring BiPAP today for wheezing and shortness of breath. OBJECTIVE: VITAL SIGNS: Temperature 98.5, heart rate 82, blood pressure 177/98, respiratory rate 19, and O2 saturation 100% on BiPAP. GENERAL: In mild distress. BiPAP in place. NECK: JVD elevated. CHEST: Prolonged expiratory phase. Wheezing throughout, rhonchi, and decreased breath sounds in lower half of lung welch. CARDIOVASCULAR: Regular rate and rhythm. Normal S1 and S2. Distant heart sounds. ABDOMEN: Soft and nontender. EXTREMITIES: No edema. Warm distal extremities. CARDIOVASCULAR MEDICATIONS: 1. Nicotine. 2. Diltiazem 30 mg b.i.d. 3. Clonidine patch. 4. Lisinopril 30 mg daily. 5. Hydralazine 10 mg IV every 4 hours as needed. 6. Methylprednisolone 40 mg every 12 hours. 7. Zosyn antibiotic. 8. Subcu heparin 5000 units every 12 hours. LAB STUDIES: Sodium 139, potassium 4, chloride 99, bicarbonate 36, BUN 18, creatinine 0.6, glucose 135. White blood cells 6, hemoglobin 12, platelets 187. INR 0.8. AST 16, ALT 16, alkaline phosphatase 40. ASSESSMENT: 1. End-stage chronic obstructive pulmonary disease with exacerbation, requiring some of his BiPAP after self-extubation by the patient yesterday. 2. Uncontrolled hypertension. 3. Active smoker. 4. Chronic diastolic heart failure. RECOMMENDATIONS: 1. Up titrate antihypertensives mainly diltiazem and Zosyn today. Continue with as-needed hydralazine dosing IV. 2. Inhalers, antibiotics, and steroids per Pulmonary expertise. Overall prognosis remains guarded. Keanu Mccarthy MD AFV/MODL /[id number]
[2019-03-12] MEDS ORDERED: DEXMEDETOMIDINE 200MCG/NS 50ML 50 ML IV ONE (20:49)
[2019-03-12] MEDS ORDERED: DEXMEDETOMIDINE HCL 200 MCG in SODIUM CHLORIDE 0.9% 50ML 48 ML IV PRN (21:00)
[2019-03-12] MEDS: DEXMEDETOMIDINE HCL 200 MCG in SODIUM CHLORIDE 0.9% 50ML 48 ML IV PRN (21:05)
[2019-03-12] MEDS ORDERED: MIDAZOLAM HCL 2 MG/2 ML VIAL ONE ×2 (21:14→21:25)
[2019-03-12 21:19] LABS: ABG PH 7.37 (7.31-7.41)
[2019-03-12] MEDS ORDERED: FENTANYL CITRATE/PF 100MCG/2 ML INJ ONE (21:20)
--- NOTE | 2019-03-12 21:20 | Diagnostic Imaging Report ---
EXAMINATION: CHEST XRAY LINE PLACEMENT COMPARISON: Chest x-ray 03/11/2019 INDICATION: Post intubation ^intubation ^[id number] ^[id number] DISCUSSION: Frontal view of the chest obtained at 2103 hours. The inferior chest was not included on the image. HEART AND MEDIASTINUM: Cardiomediastinal silhouette is grossly stable LINES: Endotracheal tube terminates at the clavicular heads, approximately 8 cm above the po. No central lines or enteric tubes. LUNGS: Lungs are well inflated. Pulmonary vasculature is prominent and stable. No infiltrates in the visualized lung welch. PLEURA: No pleural effusion or pneumothorax. BONES AND SOFT TISSUES: No focal osseous lesion. The soft tissues are normal. IMPRESSION: Endotracheal tube as described above. Stable pulmonary vascular congestion. No new findings given the limitations of this image. Signed by: Dr. Mera Jane MD on 03/12/2019 9:17 PM
[2019-03-12] MEDS ORDERED: SODIUM CHLORIDE 0.9% 50ML 50 ML ONE (21:25)
[2019-03-12] MEDS: MIDAZOLAM HCL 25 MG in SODIUM CHLORIDE 0.9% 50ML 45 ML IV PRN (21:52)
[2019-03-12 23:47] LABS: HEMATOCRIT 33.8 % (38.2-49.6); HEMOGLOBIN 10.6 g/dL (14.0-18.0); LYMPHOCYTES # (AUTO) 0.2 (1.0-3.2); LYMPHOCYTES % 2.7 % (18.0-39.1); MEAN CORPUSCULAR HEMOGLOBIN 29.7 pg (28-32); MEAN CORPUSCULAR HGB CONC 31.4 g/dL (31-35); MEAN CORPUSCULAR VOLUME 94.7 fL (81-99); MONOCYTES # (AUTO) 0.3 (0.2-0.8); MONOCYTES % 4.3 % (4.4-11.3); NEUTROPHILS # (AUTO) 5.5 (2.1-6.9); NEUTROPHILS % 92.3 % (38.7-80.0); PLATELET COUNT 145 x10e3/uL (140-360); RED BLOOD COUNT 3.57 x10e6/uL (4.3-5.7); RED CELL DISTRIBUTION WIDTH 13.9 % (11.7-14.4)
[2019-03-13] VITALS (28 sets, daily range): BP systolic 104–176; BP diastolic 69–101
[2019-03-13 00:03] LABS: INR 1.02; PARTIAL THROMBOPLASTIN TIME 29.1 seconds (23.8-35.5); PROTHROMBIN TIME 13.9 seconds (11.9-14.5)
[2019-03-13 00:12] LABS: ALANINE AMINOTRANSFERASE 24 IU/L (0-55); ALBUMIN 2.9 g/dL (3.5-5.0); ALBUMIN/GLOBULIN RATIO 1.4 (0.8-2.0); ALKALINE PHOSPHATASE 30 IU/L (40-150); ANION GAP 7.9 mmol/L (8-16); BLOOD UREA NITROGEN 16 mg/dL (7-26); BUN/CREATININE RATIO 30 (6-25); CALCIUM 8.7 mg/dL (8.4-10.2); CARBON DIOXIDE 38 mmol/L (22-29); CHLORIDE 99 mmol/L (98-107); CREATINE KINASE 66 IU/L (30-200); CREATININE, SERUM 0.54 mg/dL (0.72-1.25); EST GLOMERULAR FILTRATION RATE > 60 ML/MIN (60-); GLUCOSE 125 mg/dL (74-118); POTASSIUM 3.9 mmol/L (3.5-5.1); SODIUM 141 mmol/L (136-145)
[2019-03-13] MEDS: PIPER-TAZ 3.375 GM 50 ML IV SCH ×5 (00:28→23:56)
[2019-03-13] MEDS: DEXMEDETOMIDINE HCL 200 MCG in SODIUM CHLORIDE 0.9% 50ML 48 ML IV PRN ×4 (00:32→23:44)
[2019-03-13] MEDS: FENTANYL CITRATE INJ 2,000 MCG in SODIUM CHLORIDE 0.9% 250ML 210 ML IV PRN ×2 (00:34→06:11)
[2019-03-13] MEDS: ALBUTEROL/IPRATROPIUM 3 ML NEB NEB SCH ×6 (02:57→23:02)
[2019-03-13 03:07] LABS: LYMPHOCYTES % (MANUAL) 5 % (19-48); MONOCYTES % (MANUAL) 6 % (3.4-9.0); NEUTROPHILS % (MANUAL) 89 % (40-74)
[2019-03-13 04:06] LABS: ABG PH 7.41 (7.31-7.41)
[2019-03-13] MEDS: MIDAZOLAM HCL 25 MG in SODIUM CHLORIDE 0.9% 50ML 45 ML IV PRN ×3 (06:12)
--- NOTE | 2019-03-13 06:15 | Diagnostic Imaging Report ---
EXAMINATION: CHEST SINGLE (PORTABLE) COMPARISON: Chest x-ray 03/12/2019 INDICATION: Intubated ^SOB DISCUSSION: Frontal view of the chest obtained at 0515 hours. HEART AND MEDIASTINUM: The cardiomediastinal silhouette is stable. LINES: Endotracheal tube tip is poorly visualized due to underpenetration of the image. No new lines or tubes have been added. LUNGS: Stable hyperinflation. Pulmonary vascular markings are prominent and stable. No infiltrates. No interstitial thickening. PLEURA: No pleural effusion or pneumothorax. BONES AND SOFT TISSUES: No focal osseous lesion. The soft tissues are normal. IMPRESSION: Endotracheal tube tip poorly visualized. Stable pulmonary hyperinflation and pulmonary vascular prominence. Signed by: Dr. Mera Jane MD on 03/13/2019 6:11 AM
[2019-03-13 06:26] LABS: HEMATOCRIT 34.8 % (38.2-49.6); LYMPHOCYTES # (AUTO) 0.2 (1.0-3.2); LYMPHOCYTES % 4.9 % (18.0-39.1); MEAN CORPUSCULAR HEMOGLOBIN 29.5 pg (28-32); MEAN CORPUSCULAR HGB CONC 31.6 g/dL (31-35); MEAN CORPUSCULAR VOLUME 93.3 fL (81-99); MONOCYTES # (AUTO) 0.2 (0.2-0.8); MONOCYTES % 5.4 % (4.4-11.3); NEUTROPHILS # (AUTO) 3.4 (2.1-6.9); NEUTROPHILS % 88.9 % (38.7-80.0); PLATELET COUNT 148 x10e3/uL (140-360); RED BLOOD COUNT 3.73 x10e6/uL (4.3-5.7); RED CELL DISTRIBUTION WIDTH 13.9 % (11.7-14.4)
[2019-03-13 06:43] LABS: ANION GAP 9.9 mmol/L (8-16); BLOOD UREA NITROGEN 18 mg/dL (7-26); BUN/CREATININE RATIO 32 (6-25); CALCIUM 8.7 mg/dL (8.4-10.2); CARBON DIOXIDE 35 mmol/L (22-29); CHLORIDE 99 mmol/L (98-107); CREATININE, SERUM 0.57 mg/dL (0.72-1.25); EST GLOMERULAR FILTRATION RATE > 60 ML/MIN (60-); GLUCOSE 116 mg/dL (74-118); POTASSIUM 3.9 mmol/L (3.5-5.1); SODIUM 140 mmol/L (136-145)
[2019-03-13] MEDS: INSULIN LISPRO 100 UNIT/1 ML 3ML VIAL SQ SCH ×4 (07:30→21:00)
[2019-03-13] MEDS: HYDRALAZINE HCL 20 MG/ML VIAL IV PRN ×2 (07:39→20:28)
[2019-03-13] MEDS: PANTOPRAZOLE 40 MG 10ML VIAL IV SCH (08:00)
[2019-03-13] MEDS: METHYLPREDNISOLONE SOD SUCC 40 MG/ML VIAL 1ML IV SCH ×2 (08:00→20:38)
[2019-03-13] MEDS: DOXYCYCLINE 100MG/NS 100ML 100 ML IV SCH ×2 (08:00→20:37)
[2019-03-13] MEDS: NICOTINE 21 MG/EA PATCH TOP PRN (08:01)
[2019-03-13] MEDS: HEPARIN SOD (PORCINE) 5,000 UNIT/ML VIAL SC SCH ×2 (08:04→20:43)
[2019-03-13] MEDS: BUSPIRONE HCL 5 MG TAB PO SCH ×2 (08:15→17:00)
[2019-03-13] MEDS: LISINOPRIL 10 MG TAB PO SCH (08:16)
[2019-03-13] MEDS: DILTIAZEM HCL 30 MG TAB PO SCH ×3 (08:16→20:38)
[2019-03-13] MEDS: LIDOCAINE 5% PATCH TP SCH (08:16)
[2019-03-13 08:19] LABS: LYMPHOCYTES % (MANUAL) 5 % (19-48); MONOCYTES % (MANUAL) 5 % (3.4-9.0); NEUTROPHILS % (MANUAL) 90 % (40-74); PLATELET ESTIMATE ADEQUATE; PLATELET MORPHOLOGY COMMENT NORMAL; RBC MORPHOLOGY COMMENT NORMAL
--- NOTE | 2019-03-13 11:02 | Progress Note ---
DATE: Cardiology Progress Note SUBJECTIVE: Required repeat intubation overnight for recurrent respiratory failure and failure of BiPAP salvage trial. OBJECTIVE: VITAL SIGNS: Temperature 97.7, heart rate 54, respiratory rate 10, blood pressure 158/89, and O2 saturation 100% on vent support. GENERAL: Sedated, intubated. CHEST: Scattered wheezing and rhonchi and decreased breath sounds. CARDIOVASCULAR: Regular rate and rhythm. Normal S1 and S2. Distant heart sounds, muffled by lung sounds. ABDOMEN: Soft and bowel sounds positive. EXTREMITIES: Without significant edema. Warm distal extremities. CARDIOVASCULAR MEDICATIONS: Reviewed. 1. Nicotine patch. 2. Methylprednisone 40 mg IV every 12 hours. 3. Hydralazine 10 mg q.4 hours IV. 4. Clonidine patch. 5. Diltiazem 60 mg t.i.d. 6. Lisinopril 30 mg daily, currently without NG tube however. STUDIES: Reviewed. White blood cells 3.8, hemoglobin 11, and platelets 148. INR 1. Sodium 140, potassium 3.9, chloride 99, bicarbonate 35, BUN 18, creatinine 0.57, glucose 116, and calcium 8.7. Blood cultures negative x72 hours. ASSESSMENT: 1. End-stage chronic obstructive pulmonary disease requiring repeat intubation for acute on chronic respiratory failure. 2. Labile and uncontrolled hypertension. 3. Active smoking. 4. Chronic diastolic heart failure. RECOMMENDATIONS: 1. Continue on vent support. 2. Nebs per Pulmonary. 3. On steroids. Blood pressure more difficult to control. Once NG tube back in place, resume orals. For now, continue p.r.n. hydralazine and clonidine patch. 4. Keep on dry side to assist with weaning trials at low-dose diuretic. Keanu Mccarthy MD AFV/MODL /[id number]
[2019-03-13] MEDS: FUROSEMIDE INJ 10 MG/ML 2 ML VIAL IV SCH (12:02)
--- NOTE | 2019-03-13 13:11 | NUR ---
ST Note: Pt re-intubated overnight. Bedside swallow eval deferred.
--- NOTE | 2019-03-13 14:45 | NUR ---
FAMILY CONFERENCE TODAY WITH PT'S SON, DEENA ELIZALDE, DTR AND BROTHER ADRIEN. PT CURRENTLY IN ICU ON VENTILATOR PT IS A FULL CODE FAMILY STATES THAT PT SMOKES AND DRINKS BEER DAILY PT ON OXYGEN MOST OF THE DAY CONTINUES TO LIVE ALONE AND BE INDEPENDENT POSSIBLE PT'S DTR BELIEVES HE IS DEPRESSED; STATES HE RARELY HAS FAMILY CONTACT ANYMORE EXPLAINED DIFFERENT LEVELS OF CARE TO FAMILY; LTAC, SNF AND HOME WITH HOME HEALTH DISCHARGE DISPOSITION PENDING PT'S PROGRESS
--- NOTE | 2019-03-13 14:56 | NUR ---
Nutrition Intervention Note RD Recommendation(s) for Physician: - With propofol at 24.3mL/hr (583kcal), rec to initiate continuous TF of Vital HP @20mL/hr, advance as tolerated, to goal rate of 45mL/hr, providing 1080kcal, 95g protein, and 903ml water. -Free water flushes of 50mL q4hr; additional per MD discretion -Check daily labs, weight, and GI tolerance Plan of Care: RD following, monitoring for tolerance and adequacy, TF Nutrition reason for involvement: Follow up RD Assessment 03/13: Pt was re-intubated overnight for recurrent respiratory failure. Currently on vent and sedated. Propofol was running at 24.3mL/hr. IVF @50mL/hr. No family on bedside during my visit. Plan to restart TF. Communicated TF rec with NATALI Baez. 03/09: 63yo M, who was admitted for acute respiratory failure. Currently intubated and ventilated. CXR showed hyperinflated lungs. Pt was discussed during AM rounds. No pressor meds. TF order placed but not started yet. No family on bedside to provide hx. Will continue to monitor and follow. Principal Problems/Diagnoses: acute respiratory alkalosis, acute respiratory failure PMH: multiple pulmonary nodules, end-stage COPD, diverticulitis GI: abdomen flat, non-tender, soft, flatus present Skin: no pressure wound noted Labs: (03/13) Creatinine 0.57 L (02/27) Na 123 L, Creatinine 0.67 L, Ca 8.0 L Meds: lasix, heparin, solu-medrol, propofol, IVF Ht: 68in (per observation) Wt: 168.56lb; 181lb (possibly from fluids) BMI: 25.6kg/m2 IBW: 154lb Malnutrition Evaluation (03/09/2019) The patient does not meet criteria for a specified degree of malnutrition at this time. Will re-evaluate at follow-up as appropriate. Nutrition Prescription (Diet Order): Cardiac diet Estimated Nutritional Needs: Calories: 1368 1520kcal (18-20kcal/kg/d) Weight used: current BW Protein: 99- 152g (1.3-2g/kg/d) Weight used: current BW Diet Adequacy: Not meeting calorie needs, Not meeting protein needs Diet Education Needs Assessment: Diet education indicated, but patient not appropriate for education at this time. Nutrition Care Level: mod Nutrition Diagnosis: Inadequate oral intake related to current medical status as evidenced by pt requiring EN as main source of nutrition. Goal: Patient will meet 75-100% of estimated needs by follow up Progress: N/A Interventions: Composition, Rate, Route Monitoring/Evaluation: Total energy intake, Total protein intake, Formula/Solution, Weight change, Labs, Gastric tolerance Signed: Violet Mills MS, RD, LD
[2019-03-13] MEDS: PROPOFOL IV EMULSION 10MG/ML 100 ML IV PRN (15:15)
--- NOTE | 2019-03-13 17:29 | Diagnostic Imaging Report ---
EXAMINATION: CHEST XRAY LINE PLACEMENT, ABDOMEN-1VIEW (KUB) INDICATION: Status post PICC. COMPARISON: Chest radiograph 03/13/2019, KUB 03/09/2019. FINDINGS: TUBES and LINES: Interval placement of right-sided PICC, which terminates at the expected location of the mid SVC. The endotracheal tube terminates 10.7 cm above the po. Enteric tube terminates in the stomach, the side-port is above the GE junction. LUNGS: Hyperinflated lungs. No evidence of pneumonia or pulmonary edema. There is central vascular congestion. Pulmonary nodules are better characterized on CT chest from 03/10/2019. PLEURA: No pleural effusion or pneumothorax. HEART AND MEDIASTINUM: The cardiomediastinal silhouette is unremarkable. BONES AND SOFT TISSUES: No acute osseous abnormality. ABDOMEN: No free air under the diaphragm. Nonobstructive bowel gas pattern. Aortobiiliac endograft with postsurgical changes. IMPRESSION: Interval placement of right-sided PICC, terminating at the expected location of the mid SVC. No evidence of pneumothorax. ET tube and enteric tube as above. Enteric tube side port terminates above the GE junction and may be advanced by approximately 5 cm. Signed by: Dr. Cyn Frausto MD on 03/13/2019 5:26 PM
--- NOTE | 2019-03-13 20:23 | Diagnostic Imaging Report ---
EXAM: Abdomen 1 Views INDICATION: ^ogt advanced as recommended ^[id number] ^[id number] COMPARISON: KUB 03/13/2019 FINDINGS: Lines/tubes: Mild interval advancement of the NG/OG tube with proximal sidehole still close to the gastroesophageal junction and tip overlying the gastric fundus. Mild of stool in the colon. No dilated loops of small bowel. No renal calculi. No abnormal soft tissue masses. Mild degenerative changes in the lumbar spine and pelvis. Abdominal aorta/bilateral common iliac arteries stent graft in place. Multiple coils overlying the right side of the lower lumbar spine. IMPRESSION: Interval mild advancement of the NG/OG tube with proximal sidehole still close to the gastroesophageal junction. Recommend additional advancement. Signed by: Dr. Lucia Good M.D. on 03/13/2019 8:20 PM
--- NOTE | 2019-03-13 22:33 | Diagnostic Imaging Report ---
Abdomen/KUB INDICATION: ^OGT PLACEMENT ^[id number] ^[id number] COMPARISON: Abdomen x-ray 1920 hours. FINDINGS: Portable, supine image obtained at 2217 hours. Medical Devices: Enteric tube remains in the proximal stomach with the sidehole just past the GE junction. Aortic endograft is redemonstrated Bowel: Distended loop of small bowel in the left hemiabdomen measures 3.5 cm. No pneumatosis. There is air in the large bowel with less gaseous distention of the transverse colon. Free air: None Calcifications: Vascular calcifications. Organomegaly: None Lung bases: Clear Bones: Stable IMPRESSION: No change in position of enteric tube. Recommend advancement 7 to 10 cm to ensure sidehole placement within the stomach. Distended small bowel loops suggestive of mild ileus. Signed by: Dr. Mera Jane MD on 03/13/2019 10:30 PM
[2019-03-14] VITALS (23 sets, daily range): BP systolic 132–198; BP diastolic 71–96
[2019-03-14] MEDS: SODIUM CHLORIDE 0.9% 1000ML 1,000 ML IV SCH ×3 (00:01→23:25)
[2019-03-14] MEDS: PROPOFOL IV EMULSION 10MG/ML 100 ML IV PRN ×5 (02:51→19:41)
[2019-03-14] MEDS: ALBUTEROL/IPRATROPIUM 3 ML NEB NEB SCH ×6 (03:07→23:00)
[2019-03-14] MEDS: PIPER-TAZ 3.375 GM 50 ML IV SCH ×3 (05:26→17:58)
[2019-03-14 05:43] LABS: HEMATOCRIT 35.2 % (38.2-49.6); LYMPHOCYTES # (AUTO) 0.1 (1.0-3.2); LYMPHOCYTES % 4.7 % (18.0-39.1); MEAN CORPUSCULAR HEMOGLOBIN 29.7 pg (28-32); MEAN CORPUSCULAR HGB CONC 31.3 g/dL (31-35); MEAN CORPUSCULAR VOLUME 95.1 fL (81-99); MONOCYTES # (AUTO) 0.2 (0.2-0.8); MONOCYTES % 6.1 % (4.4-11.3); NEUTROPHILS # (AUTO) 2.5 (2.1-6.9); NEUTROPHILS % 88.8 % (38.7-80.0); PLATELET COUNT 151 x10e3/uL (140-360); RED CELL DISTRIBUTION WIDTH 13.8 % (11.7-14.4)
[2019-03-14] MEDS: HYDRALAZINE HCL 20 MG/ML VIAL IV PRN ×2 (06:10→12:48)
[2019-03-14] MEDS: DEXMEDETOMIDINE HCL 200 MCG in SODIUM CHLORIDE 0.9% 50ML 48 ML IV PRN (06:10)
[2019-03-14] MEDS: PANTOPRAZOLE SOD 40 MG TABEC PO SCH (07:30)
[2019-03-14] MEDS: INSULIN LISPRO 100 UNIT/1 ML 3ML VIAL SQ SCH ×4 (07:30→20:46)
[2019-03-14 07:49] LABS: LYMPHOCYTES % (MANUAL) 4 % (19-48); MONOCYTES % (MANUAL) 3 % (3.4-9.0); NEUTROPHILS % (MANUAL) 93 % (40-74); PLATELET ESTIMATE ADEQUATE; RBC MORPHOLOGY COMMENT NORMAL
[2019-03-14 07:50] LABS: PLATELET MORPHOLOGY COMMENT NORMAL
--- NOTE | 2019-03-14 07:51 | Diagnostic Imaging Report ---
Exam: Abdominal film Clinical History: Orogastric tube placement Comparison: 03/13/2019 DISCUSSION: Enteric tube has been advanced. The tip now projects over the expected region of the pylorus with the sidehole positioned over the gastric body. Bowel gas pattern remains nonobstructive with interval resolution of previously described mildly distended air-filled loop of small bowel in the midabdomen. No mass effect or organomegaly. Endograft related to abdominal aortic aneurysm repair and side branch vessel coil embolization, unchanged. Regional skeletal structures are intact. IMPRESSION: Interval advancement of enteric tube, with the tip now projecting over the gastric pylorus. Signed by: Dr. Sheldon Wagoner M.D. on 03/14/2019 7:47 AM
[2019-03-14 08:03] LABS: ANION GAP 10.9 mmol/L (8-16); BLOOD UREA NITROGEN 20 mg/dL (7-26); BUN/CREATININE RATIO 35 (6-25); CALCIUM 9.1 mg/dL (8.4-10.2); CARBON DIOXIDE 36 mmol/L (22-29); CHLORIDE 98 mmol/L (98-107); CREATININE, SERUM 0.57 mg/dL (0.72-1.25); EST GLOMERULAR FILTRATION RATE > 60 ML/MIN (60-); GLUCOSE 131 mg/dL (74-118); POTASSIUM 3.9 mmol/L (3.5-5.1); SODIUM 141 mmol/L (136-145)
[2019-03-14] MEDS: LIDOCAINE 5% PATCH TP SCH (09:00)
[2019-03-14] MEDS: DILTIAZEM HCL 30 MG TAB PO SCH ×3 (09:00→20:47)
[2019-03-14] MEDS: BUSPIRONE HCL 5 MG TAB PO SCH ×2 (09:17→17:58)
[2019-03-14] MEDS: FUROSEMIDE INJ 10 MG/ML 2 ML VIAL IV SCH (09:17)
[2019-03-14] MEDS: METHYLPREDNISOLONE SOD SUCC 40 MG/ML VIAL 1ML IV SCH ×2 (09:17→20:46)
[2019-03-14] MEDS: HEPARIN SOD (PORCINE) 5,000 UNIT/ML VIAL SC SCH ×2 (09:19→20:47)
[2019-03-14] MEDS: NICOTINE 21 MG/EA PATCH TOP PRN (09:19)
[2019-03-14] MEDS: DOXYCYCLINE 100MG/NS 100ML 100 ML IV SCH ×2 (09:30→20:46)
[2019-03-14] MEDS: LISINOPRIL 10 MG TAB PO SCH (10:12)
--- NOTE | 2019-03-14 12:07 | NUR ---
ST NOTE: Pt continues to be intubated, will follow pt status and complete BSE when pt has been extubated 24-48 hours
[2019-03-14] MEDS ORDERED: MIDAZOLAM HCL 25 MG in DEXTROSE 5% 50ML 45 ML IV PRN (13:45)
[2019-03-14] MEDS: FENTANYL CITRATE INJ 2,000 MCG in SODIUM CHLORIDE 0.9% 250ML 210 ML IV PRN ×2 (15:00→21:00)
[2019-03-14] MEDS ORDERED: THIAMINE HCL INJ 100 MG/ML 2ML VIAL IV NR (15:00)
[2019-03-14] MEDS: MIDAZOLAM HCL 25 MG in SODIUM CHLORIDE 0.9% 50ML 45 ML IV PRN ×3 (15:27→23:10)
--- NOTE | 2019-03-14 17:40 | Progress Note ---
DATE: 03/14/2019 Cardiology Progress Note SUBJECTIVE: Remains sedated and intubated. OBJECTIVE: VITAL SIGNS: Temperature 98.2, heart rate 56, respiratory rate 16, blood pressure 134/74, O2 saturation 100% on vent support. GENERAL: In sedated state, connected to the vent via ET tube. LUNGS: Scattered wheezing and rhonchi to lung auscultation. CARDIOVASCULAR: Regular rate and rhythm. Normal S1, S2. On telemetry, in sinus rhythm. ABDOMEN: Soft, nondistended. EXTREMITIES: No edema. Warm distal extremities. SKIN: Intact. CARDIOVASCULAR MEDICATIONS: Reviewed. Nicotine patch, heparin subcu 5000 units every 12 hours, furosemide 10 mg IV daily, methylprednisolone 40 mg IV q.12 hours, hydralazine p.r.n. 10 mg IV, diltiazem 60 mg t.i.d., clonidine patch once a day. LABORATORY DATA: White blood cells 2.7, hemoglobin 11, platelets 151. Sodium 141, potassium 3.9, chloride 98, bicarbonate 36, BUN 20, creatinine 0.5, glucose 131, calcium 9.1. Blood cultures negative x5 days. ASSESSMENT: 1. End-stage chronic obstructive pulmonary disease requiring repeat intubation for acute on chronic respiratory failure. 2. Labile blood pressure, history of hypertension. 3. Active smoker. 4. Chronic diastolic heart failure. RECOMMENDATION: 1. Continue diuretics. 2. Continue vent support and weaning as per Pulmonary. 3. Inhalers as needed. 4. Steroids as needed. 5. Antihypertensives, continue. MD BINDU Gage/GLO /[id number]
--- NOTE | 2019-03-14 19:00 | NUR ---
Bedside report received from Abigail King RN. No signs of distress noted. Care plan reviewed, no family at the bedside. Per report pt is to transfer to [facility] in AM.
[2019-03-15] VITALS (16 sets, daily range): BP systolic 129–198; BP diastolic 71–94
[2019-03-15] MEDS: PROPOFOL IV EMULSION 10MG/ML 100 ML IV PRN ×3 (01:20→13:26)
[2019-03-15] MEDS: HYDRALAZINE HCL 20 MG/ML VIAL IV PRN ×2 (01:30→14:43)
[2019-03-15] MEDS: ALBUTEROL/IPRATROPIUM 3 ML NEB NEB SCH ×4 (04:00→15:00)
[2019-03-15] MEDS: MIDAZOLAM HCL 25 MG in SODIUM CHLORIDE 0.9% 50ML 45 ML IV PRN ×3 (04:00→13:26)
[2019-03-15] MEDS: PIPER-TAZ 3.375 GM 50 ML IV SCH ×4 (05:29→18:00)
--- NOTE | 2019-03-15 07:00 | NUR ---
Bedside report given to Abigail King RN. Care plan reviewed, no family at the bedside. No signs of distress or discomfort noted at this time. Pt to transfer to [place] today.
[2019-03-15] MEDS: INSULIN LISPRO 100 UNIT/1 ML 3ML VIAL SQ SCH ×3 (07:30→16:30)
[2019-03-15] MEDS: PANTOPRAZOLE SOD 40 MG TABEC PO SCH (07:30)
[2019-03-15] MEDS: DOXYCYCLINE 100MG/NS 100ML 100 ML IV SCH (08:30)
[2019-03-15] MEDS: DILTIAZEM HCL 30 MG TAB PO SCH ×2 (08:45→15:00)
[2019-03-15] MEDS: BUSPIRONE HCL 5 MG TAB PO SCH ×2 (09:00→17:00)
[2019-03-15] MEDS: FUROSEMIDE INJ 10 MG/ML 2 ML VIAL IV SCH (09:00)
[2019-03-15] MEDS: LISINOPRIL 10 MG TAB PO SCH (09:00)
[2019-03-15] MEDS: LIDOCAINE 5% PATCH TP SCH (09:00)
--- NOTE | 2019-03-15 09:28 | NUR ---
ST NOTE: Pt continues to be intubated, will follow pt status and complete BSE when pt has been extubated 24-48 hours
[2019-03-15] MEDS: HEPARIN SOD (PORCINE) 5,000 UNIT/ML VIAL SC SCH (12:10)
[2019-03-15] MEDS: FENTANYL CITRATE INJ 2,000 MCG in SODIUM CHLORIDE 0.9% 250ML 210 ML IV PRN (13:26)
--- NOTE | 2019-03-15 17:00 | NUR ---
pt discharged to [facility] area via [facility] stretcher w/assessment clinician available for vent transfer. pt sedated on versed,fentanyl and propofol
[2019-03-15] MEDS ORDERED: METHYLPREDNISOLONE SOD SUCC 40 MG/ML VIAL 1ML IV SCH (21:00)
[2019-03-16] MEDS ORDERED: THIAMINE HCL 100 MG TAB PO SCH (09:00)
== END 2019-03-15 17:10 | DRG 870 ==
LOC: ER 19:27 → ERHOLD 21:57 → ICU 22:48 → MED/SURG2 03-12 10:09 → ICU 03-12 10:22
PROVIDERS: ADMIT Internal Medicine; ATTEND Internal Medicine
PROC: 0BH17EZ Insertion of Endotracheal Airway into Trachea, Via Natural or Artificial Opening (ICD-10-PCS; principal; 2019-03-08)
PROC: 5A1955Z Respiratory Ventilation, Greater than 96 Consecutive Hours (ICD-10-PCS; 2019-03-08)
PROC: 02HV33Z Insertion of Infusion Device into Superior Vena Cava, Percutaneous Approach (ICD-10-PCS; 2019-03-12)
DX: A41.9 Sepsis, unspecified organism (principal); R65.21 Severe sepsis with septic shock; J18.9 Pneumonia, unspecified organism; J96.21 Acute and chronic respiratory failure with hypoxia; E87.1 Hypo-osmolality and hyponatremia; J44.1 Chronic obstructive pulmonary disease with (acute) exacerbation; J44.0 Chronic obstructive pulmonary disease with (acute) lower respiratory infection; I50.32 Chronic diastolic (congestive) heart failure; F17.210 Nicotine dependence, cigarettes, uncomplicated; R91.8 Other nonspecific abnormal finding of lung field; I11.0 Hypertensive heart disease with heart failure
CPT/HCPCS: 31500; 36415; 36569; 36600; 71045; 71250; 74018; 80048; 80053; 80307; 81001; 82550; 82553; 82805; 82948; 83605; 83735; 83880; 84443; 84484; 85025; 85610; 85730; 87040; 87070; 87086; 87116; 87205; 87206; 93005; 93306; 94002; 94003; 94640; 94660; 96361; 96374; 99284; J0330; J0360; J0692; J0696; J1644; J1940; J2060; J2250; J2543; J2920; J2930; J3370; J3411; J7030; J7050